=== PATIENT | female | born 1960 | race Caucasian/White ===

== ENCOUNTER 2016-05-18 08:15 | Day surgery (SDC) | payer OTHER ==
[~2016-05-18] VITALS: Ht 170.2 cm; Wt 70.0 kg
[~2016-05-18 08:15] MED LIST: AMLO2.5T PO; ASPI-973 PO; DEXL60CA5 PO; GABA600T PO; IMDUR PO; LIP40 PO; METO25TA99 PO; MORP15TA PO; OXYC5TAB72 PO; SOMA350 PO
[2016-05-18] MEDS ORDERED: Propofol 10,000 mCg/mL 20 mL Inj ONE (08:16)
[2016-05-18] MEDS ORDERED: fentaNYL-PF 50 mCg/mL 2 mL Inj ONE (08:16)
[2016-05-18 08:34] VITALS: BP 136/70; PULSE 69; RESP 16; O2SAT 98
--- NOTE | 2016-05-18 08:59 | PCM.HPANE ---
Patient Data Surgeon Admitting Provider: Attending Provider:Andrea Louie MD Primary Care Physician:Margi Lacy Other Provider:DuaneocAbbySatartia Anesthesia Reason for Visit GERD Ht/WT & BMI Body Mass Index Allergies Coded Allergies: NSAIDS (Non-Steroidal Anti-Inflamma (Verified Allergy, Mild, GI PROBLEMS, 05/18/16) celecoxib (Verified Allergy, Unknown, 05/18/16) Medications Reported Medications oxyCODONE 5 Mg Tablet5 Mg PO Q6H PRN For Pain Ref 0 05/14/16 Gabapentin (Neurontin)600 Mg [id number] Mg PO TID 30 Days Ref 0 05/14/16 Morphine Sulfate 15 Mg Xeaoti57 Mg PO BID 05/14/16 [Imdur] No Conflict Check60 Mg PO QAM 05/14/16 Dexlansoprazole ER (Dexilant)60 Mg Haldebe20 Mg PO DAILY 30 Days Ref 0 05/14/16 Carisoprodol 350 Mg Vkvval062 Mg PO HS PRN For Spasm 05/14/16 Atorvastatin (Lipitor)40 Mg Oevfsl90 Mg PO DAILY Ref 0 05/14/16 Aspirin 81 Mg Xnjvqg82 Mg PO DAILY Ref 0 05/14/16 Amlodipine 2.5 Mg Tablet2.5 Mg PO DAILY Ref 0 05/14/16 Discontinued Reported Medications Metoprolol Succinate ER 25 Mg Tab.er.24h25 Mg PO DAILY Ref 0 05/14/16 Stop/Bang Risk Assessment Category Category 1A: Patient has history of documented sleep apnea, and HAS NOT received any narcotic, sedative or anesthesia administration during this stay. Category 1B: Patient has history of documented sleep apnea, and HAS received any narcotic , sedative or anesthesia administration during this stay Category 2: Patient has SUSPECTED Obstructive Sleep Apnea, and HAS received any narcotic , sedative or anesthesia administration during this stay. Category 3: Patient has SUSPECTED Obstructive Sleep Apnea and HAS NOT received narcotic, sedative or anesthesia administration during this stay. Category 4: Outpatient in Procedural Areas with known sleep apnea or who screen positive for High Risk via the STOP/BANG questionnaire. Exam Exam General Appearance: Alert, Oriented X3, Cooperative, No Acute Distress HEENT/AIRWAY: MP 2 Lungs: Clear to Auscultation Heart: Exam Unremarkable Plan Impression Patient chart reviewed, patient interviewed and anesthestic plan with risks, benefits, and alternatives discussed, and informed consent obtained. ASA Physical Status: ASA2 Mod Systemic Disease Anesthetic Plan: MAC Bene/Risks/Altern/Consents: Yes HP Complete Prior to Induction: Yes Toni Mar MD May 18, 2016 07:59
[2016-05-18] MEDS: Lactated Ringer's 1,000 ML IV ONE ×2 (09:00→09:16)
[2016-05-18] MEDS ORDERED: OMEP20CA11 PO (09:02)
[2016-05-18] MEDS ORDERED: NITR0.4T6 SL (09:02)
[2016-05-18 09:24] VITALS: BP 110/54; PULSE 76; RESP 16; O2SAT 96
[2016-05-18 09:49] VITALS: BP 108/62; PULSE 57; RESP 14; O2SAT 98
--- NOTE | 2016-05-18 10:00 | PCM.ANEP2 ---
Post Anesthesia Evaluation ASA/CMS Post Anesthesia VS in Patient's Normal Range?: Yes Resp Stable; Airway Patent?: Yes CV Function & Hydration Stable: Yes Mental Status Recovered?: Yes Pain control Satisfactory?: Yes N/V Control Satisfactory?: Yes Toni Mar MD May 18, 2016 10:00
--- NOTE | 2016-05-18 10:01 | ENDO ---
[address] [address] ENDOSCOPY PROCEDURE PATIENT: DG JEAN : 1960 MR#: [id number] ADMIT: 05/18/2016 JOB ID: [id number] DATE: 05/18/2016 PRIMARY PROVIDER: FABY Maurice. PROCEDURE: Esophagogastroduodenoscopy with biopsies. INDICATIONS: A 55-year-old female with refractory symptoms of reflux especially at night, characterized by volume regurgitation globus, some nausea following eating. The patient has not had an adequate response to Dexilant 60 mg daily. She has intermittently added in a dose of omeprazole in the evening but not consistently so. Endoscopic interrogation is pursued. EQUIPMENT: GIF H 180 J. SEDATION: Monitored anesthesia is provided by Toni Mar MD. COMPLICATIONS: None identified. PROCEDURE INFORMATION: After the risks and benefits were explained, written and verbal informed consent was obtained. The patient was brought into the endoscopy suite and placed into the left lateral decubitus position. Sedation was achieved as above. The scope was introduced into the mouth through the bite block and advanced to the second portion the duodenum. The scope was slowly withdrawn to carefully examine the mucosa for any defects or lesions. Retroflexed views were accomplished in the stomach. The stomach was decompressed. The scope was removed the patient who tolerated the procedure well. FINDINGS: 1. Duodenum: No mucosal pathology appreciated from the bulb through the second portion. Fairly sharp angulated corner from D1 to D2. 2. Stomach: Mild diffuse gastropathy. Random biopsy was thus acquired for exclusion of Helicobacter or any other underlying pathology. I did not see any ulcers, no mass lesions, no outlet obstruction. Retroflexed views of the LES were rather unremarkable. 3. Esophagus: The squamocolumnar junction seemed to correlate with the top of the gastric folds. The GE junction was at about 36 cm from the incisors. Z-line was slightly irregular, and I took a biopsy at the level of the GE junction for exclusion of any element of specialized intestinal metaplasia. I did not see any evidence of acute erosive changes. No strictures. No mass lesions and the rest of the esophagus appeared fairly unremarkable. There is a subtle sliding hiatal hernia evident. ENDOSCOPIC DIAGNOSES: 1. Subtle sliding hiatal hernia. 2. Irregular Z-line. 3. Gastropathy. RECOMMENDATIONS: 1. Await histopathology. 2. If there is any element of specialized intestinal metaplasia then surveillance endoscopy would be appropriate. 3. I have written for Dexilant 30 mg twice daily. Simply to see if this provides better 24 hour coverage for the patient. 4. Follow up my office in approximately 6-8 weeks to see how things were getting on.
--- NOTE | 2016-05-19 12:03 | PATH ---
SURGICAL PATHOLOGY Attending Physician:Delfin Carolina CASE STATUS: Signed Out PATIENT NAME: DG JEAN PID: [id number] : 1960 DATE COLLECTED:05/18/2016 15:34 SPECIMEN: 1: Gastric, Biopsy 2: Esophagus, Biopsy CLINICAL HISTORY: A: GASTRIC BIOPSY B: GE JUNCTION BIOPSY FINAL DIAGNOSIS: 1.GASTRIC BIOPSY: NORMAL GASTRIC CORPUS. Negative for Helicobacter organisms. Negative for intestinal metaplasia. Negative for dysplasia or malignancy. 2.GE JUNCTION BIOPSY: GASTRIC GLANDULAR MUCOSA WITH INTESTINAL METAPLASIA, CONSISTENT WITH DAVEY' S ESOPHAGUS. No evidence of malignancy or dysplasia. ICD10 code K22.7 GROSS DESCRIPTION: The specimen is received in two formalin filled containers labeled with the patient's name. 1). The specimen is sublabeled "gastric" and consists of a 0.3 x 0.3 x 0.3 CM portion of tissue which is entirely submitted in cassette 1A. 2). The specimen is sublabeled "GE junction" and consists of a 0.1 x 0.1 x 0.1 CM portion of tissue which is entirely submitted in cassette 2A. 05/18/2016 DAC MICRO DESCRIPTION: See diagnosis. ICD-9 CODES: CPT CODES: 1: 25399 2: 96590 Electronically Signed Out Jarocho Lazo MD [facility] [address], [place] [address] Technical component performed at [facility], [address] [place] [address] Ave[address], , [address]
== END 2016-05-18 23:59 | disposition home or self-care (01) ==
LOC: END 08:15
PROVIDERS: ATTEND Internal Medicine Gastroenterology
DX: K22.70 Barrett's esophagus without dysplasia (principal); K21.9 Gastro-esophageal reflux disease without esophagitis; K44.9 Diaphragmatic hernia without obstruction or gangrene; K31.9 Disease of stomach and duodenum, unspecified; E05.90 Thyrotoxicosis, unspecified without thyrotoxic crisis or storm; M41.9 Scoliosis, unspecified; M19.90 Unspecified osteoarthritis, unspecified site; Z79.82 Long term (current) use of aspirin
CPT/HCPCS: 43239; J7120